=== PATIENT | female | born 1965 | race Caucasian/White ===

== ENCOUNTER → 2017-06-02 16:47 | Outpatient (CLI) | payer MEDICAID ==
[2012-03-26 15:46] VITALS: BMI 38.4
== END | disposition home or self-care (01) ==
LOC: D.MAMMO 05-01 11:30
DX: Z12.31 Encounter for screening mammogram for malignant neoplasm of breast (principal)

== ENCOUNTER → 2017-12-19 09:46 | Outpatient (CLI) | payer MEDICAID ==
[2012-03-26 15:46] VITALS: BMI 38.4
== END | disposition home or self-care (01) ==
LOC: D.MRI 09:46
DX: G89.29 Other chronic pain (principal)

== ENCOUNTER 2018-03-15 04:57 | Emergency (ER) | payer MEDICAID ==
[~2018-03-15] VITALS: Ht 149.9 cm; Wt 95.5 kg
[2018-03-15 05:04] VITALS: Ht 149.9 cm; Wt 95.5 kg
[2018-03-15] MEDS ORDERED: SYNTHROID125 MCG PO (05:18)
[2018-03-15] MEDS ORDERED: MULTI-DAY VITAM1 TAB PO (05:18)
[2018-03-15] MEDS ORDERED: LITHIUM CARBON300 MG PO (05:18)
[2018-03-15] MEDS ORDERED: SINGULAIR10 MG PO (05:19)
[2018-03-15] MEDS ORDERED: TRAZODONE HCL100 MG PO (05:19)
[2018-03-15] MEDS ORDERED: NEXIUM40 MG (05:19)
[2018-03-15] MEDS ORDERED: COZAAR100 MG PO (05:19)
[2018-03-15] MEDS ORDERED: SINEQUAN25 MG PO (05:20)
[2018-03-15] MEDS ORDERED: CELEXA20 MG PO (05:20)
[2018-03-15] MEDS ORDERED: LAMICTAL100 MG PO (05:20)
[2018-03-15 05:25] LABS: BASOPHILS 0.1 % (0-2); EOSINOPHILS 0.2 % (0-7); HEMATOCRIT 39.4 % (36.0-48.0); HEMOGLOBIN 13.2 g/dL (12-16); IMMATURE GRANULOCYTES 0.2 % (0-5); LYMPHOCYTES 10.9 % (15-50); MCH 30.4 pg (26.0-34.0); MCHC 33.5 g/dL (31.0-37.0); MCV 90.8 fL (80.0-100.0); MEAN PLATELET VOLUME 9.4 fL (7.4-10.4); MONOCYTES 7.2 % (2-11); NEUTROPHILS 81.4 % (40-80); RBC 4.34 10x6/uL (4.00-5.40); RDW 13.7 % (11.5-14.5); WBC 12.1 10x3/uL (4.8-10.8)
[2018-03-15 05:33] LABS: PLATELET COUNT 329 10x3/uL (130-400)
[2018-03-15 05:37] LABS: UDS - AMPHET POSITIVE QUAL (NEGATIVE); UDS - BARB NEGATIVE QUAL (NEGATIVE); UDS - BENZO POSITIVE QUAL (NEGATIVE); UDS - COCAINE NEGATIVE QUAL (NEGATIVE); UDS - OPIATE NEGATIVE QUAL (NEGATIVE); UDS - PCP NEGATIVE QUAL (NEGATIVE); UDS - THC POSITIVE QUAL (NEGATIVE)
[2018-03-15 05:38] LABS: SALICYLATES 1.4 mg/dL (2.8-20.0)
[2018-03-15 05:41] LABS: ALBUMIN 3.7 g/dL (3.4-5.0); ALKALINE PHOSPHATASE 84 U/L (46-116); ALT (SGPT) 22 U/L (10-68); BILIRUBIN - TOTAL 0.55 mg/dL (0.2-1.3); CALC OSMOLALITY 277 mosm/kg (275-300); CALCIUM 8.9 mg/dL (8.5-10.1); CARBON DIOXIDE 24.5 mmol/L (21.0-32.0); CHLORIDE - SERUM 105 mmol/L (98-107); CREATININE - SERUM 0.7 mg/dL (0.6-1.3); MAGNESIUM - SERUM 1.9 mg/dL (1.8-2.4); POTASSIUM - SERUM 3.3 mmol/L (3.5-5.1); PROTEIN - SERUM 7.2 g/dL (6.4-8.2); SODIUM 140 mmol/L (136-145); UREA NITROGEN 7 mg/dL (7-18); eGFR NON AFRICAN AMERICAN > 90 mL/min (90-120)
[2018-03-15 05:42] LABS: GLUCOSE 124 mg/dL (74-106); LITHIUM 0.03 mmol/L (0.60-1.20)
[2018-03-15 05:44] LABS: APPEARANCE CLEAR (CLEAR); BILIRUBIN NEGATIVE (NEGATIVE); COLOR YELLOW (YELLOW); GLUCOSE NEGATIVE (NEGATIVE); KETONE LARGE mg/dL (NEGATIVE); NITRITE NEGATIVE (NEGATIVE); PROTEIN TRACE mg/dL (NEGATIVE); SPECIFIC GRAVITY 1.025 (1.005-1.020); UROBILINOGEN NORMAL (NORMAL)
[2018-03-15 05:46] LABS: BACTERIA FEW /hpf (NONE SEEN); EPITHELIAL CELLS 0-5 /hpf (0-5); MUCUS <1+ /lpf (NONE SEEN); RED CELLS - URINE 0-5 /hpf (0-5); WHITE CELLS - URINE 0-5 /hpf (0-5)
[2018-03-15 08:15] VITALS: BP 178/086
== END 2018-03-15 08:16 | disposition home or self-care (01) ==
LOC: D.ER 04:57
PROVIDERS: Family Medicine
DX: F15.10 Other stimulant abuse, uncomplicated (principal); F41.9 Anxiety disorder, unspecified; I10 Essential (primary) hypertension; G47.00 Insomnia, unspecified; Z91.19 Patient's noncompliance with other medical treatment and regimen; F17.200 Nicotine dependence, unspecified, uncomplicated

== ENCOUNTER 2018-08-23 07:20 | Day surgery (SDC) | payer MEDICAID ==
[2018-08-21 16:43] LABS: HEMATOCRIT 47.9 % (36.0-48.0); HEMOGLOBIN 16.5 g/dL (12-16); MCH 31.4 pg (26.0-34.0); MCHC 34.4 g/dL (31.0-37.0); MCV 91.1 fL (80.0-100.0); MEAN PLATELET VOLUME 9.6 fL (7.4-10.4); RBC 5.26 10x6/uL (4.00-5.40); RDW 14.2 % (11.5-14.5); WBC 13.9 10x3/uL (4.8-10.8)
[2018-08-23] VITALS (12 sets, daily range): BP systolic 109–127; BP diastolic 65–84; Ht 149.9 cm; Wt 92.7 kg
[~2018-08-23] VITALS: Ht 149.9 cm; Wt 92.7 kg
--- NOTE | ~2018-08-23 | OP ---
PATIENT NAME: HARMAN LIMON MEDICAL RECORD: [id number] :69 LOCATION:[facility] ADMISSION DATE: SURGEON: HO RIVERA MD DATE OF OPERATION: 08/23/2018 PREOPERATIVE DIAGNOSES: Osteophyte formation, disc herniation at the C4-C5 and C5-C6. SURGEON: Ho Rivera MD PROCEDURE: Anterior cervical discectomy and fusion with separate anterior cervical plate and screws, PEEK interbody cages, bone stem cell allograft at C4-C5 and C5-C6. DESCRIPTION OF TECHNIQUE: After induction of general endotracheal anesthesia, the patient was positioned supine on the operating table with interscapular roll. The neck was prepped and draped in usual sterile fashion. A [place] dissector localized the C4-C5 interspace. A transverse skin incision was carried out from the midline to the sternocleidomastoid muscle. The platysma was divided with Bovie cautery. Then, using blunt and sharp dissection with Metzenbaum scissors, I proceeded in an avascular plane medial to the carotid sheath. The C4-C5 and C5-C6 interspaces were confirmed with fluoroscopic x-ray and a spinal needle. The longus colli muscles were elevated from bodies of C4, C5 and C6. [place] distracting pins were placed in the bodies of C4, C5 and C6. The disc space was incised in each level with a #11 blade. The disc material was removed with pituitary rongeurs and curettes. Under microscopic illumination, osteophytes were drilled away posteriorly with a Midas-Ubaldo drill. The posterior longitudinal ligament was removed with Cloward rongeurs. Following this, the dura was decompressed well. Peek interbody cages were placed in the disc space at C4-C5 and C5-C6. Prior to this, I filled with bone stem cell allograft. A separate anterior cervical plate and screws was used to span the C4-C5 and C5-C6 interspaces. Self-drilling screws were placed through the holes of the plate. Locking cams were tightened down over the screw heads. Good position of the hardware was confirmed with fluoroscopic x-ray. The platysma was closed with interrupted 3-0 Vicryl suture, the subdermal layer was closed with interrupted 3-0 Vicryl suture. The skin was reapproximated with Steri-Strips and benzoin. A sterile dressing was applied to the wound. The patient was awakened in good condition and taken to recovery. All counts were reported as correct. Estimated blood loss was minimal. TRANSINT:[id number] Voice Confirmation ID: [id number] DOCUMENT ID: [id number] HO RIVERA MD CC: [id number] DICTATION DATE: 08/29/18 0749 RUG WASHER: 08/29/18 0857 [facility] 08/24/18 [place] [id number]
[~2018-08-23 07:20] MED LIST: BUSPIRONE HCL7.5 MG PO; CELEXA20 MG PO; COZAAR100 MG PO; KLONOPIN1 MG PO; LAMICTAL100 MG PO; LITHIUM CARBON300 MG PO; MULTI-DAY VITAM1 TAB PO; NEURONTIN 300300 MG PO; NEXIUM40 MG; SINEQUAN25 MG PO; SINGULAIR10 MG PO; SYNTHROID125 MCG PO; TOPROL XL50 MG PO; TRAZODONE HCL100 MG PO
[2018-08-23 08:00] LABS: HCG URINE NEGATIVE (NEGATIVE)
--- NOTE | 2018-08-23 14:45 | NUR ---
RECEIVED PATIENT FROM RECOVERY NURSE AT THIS TIME. LEFT ANTERIOR NECK INCISION FROM ACD C4-C5-C5-C6. HOB ELEVATED 60 DEGREES. PT AWAKE BUT DROWSY FROM ANESTHESIA MEDS. HOOKED UP TO MONITOR. VSS. WILL CHECK ORDERS AND CONTINUE TO MONITOR
--- NOTE | 2018-08-23 15:51 | NUR ---
CALLED DR. FELIZ FOR MEDICATION ORDERS. NO ANSWER. WILL TRY BACK LATER
--- NOTE | 2018-08-23 16:48 | NUR ---
CALLED DR. FELIZ'S CELL AGAIN TO ASK ABOUT MED ORDERS. NO ANSWER. LEFT VOICEMAIL. CALLED SURGERY AND FOUND OUT HE IS IN SURGERY AT THE MOMENT.
--- NOTE | 2018-08-23 19:00 | NUR ---
REPORT REC'D.PT CARE ASSUMED. ASSESSMENT COMPLETED. SEE FLOW SHEETS FOR ALL FINDINGS. PT NECK INCISION SMALL BLEEDING NOTED, DRESSING REINFORCED WITH 4X4 AND MEPILEX TAPE. WILL CONT TO MONITOR.
--- NOTE | 2018-08-23 22:02 | NUR ---
PT C/O HEADACHE 4/10 ON SCALE. NORCO-5 X2TAB GIVEN. REPOSITIONED SELF FOR COMFORT. WILL CONT TO MONITOR.
--- NOTE | 2018-08-23 23:00 | NUR ---
REASSESSMENT COMPLETED PER FLOWSHEETS. NO SIGNS OF DISTRESS NOTED AT THIS TIME. VSS. CPOC.
[2018-08-24] VITALS (13 sets, daily range): BP systolic 116–166; BP diastolic 74–129
--- NOTE | 2018-08-24 01:00 | NUR ---
PT RESTING QUIETLY WIHTOUT DISTRESS AT THIS TIME. VSS.
--- NOTE | 2018-08-24 03:00 | NUR ---
REASSESSMENT COMPLETED PER FLOWSHEETS. SB IN CM WITH HR TO 55, PT C/O HEADACHE 4/10 ON SCALE. TYLENOL 1TAB GIEN PER ORDER, WILL REASSESS. CPOC.
--- NOTE | 2018-08-24 07:00 | NUR ---
PATIENT RESTING IN BED WITH STABLE VS. AWAKE ALERT AND ORIENTED. DRESSING TO NECK IS CLEAN AND DRY.
--- NOTE | 2018-08-24 09:00 | NUR ---
PATIENT RESTING IN BED WITH STABLE VS AWAKE AND ALERT. ATE BREAKFAST ADMINISTERED PRN MORPHINE FOR COMFORT. NO COMPLAINTS.
--- NOTE | 2018-08-24 11:00 | NUR ---
PATIENT RESTING IN BED WITH STABLE VS. AWAKE ALERT AND ORIENTED. NO COMPLAINTS. O2 SATURATION 93% WITHOUT OXYGEN. WILL INFORM DR. FELIZ WHEN HE MAKES ROUNDS.
== END 2018-08-24 13:00 | disposition home or self-care (01) ==
LOC: D.OPS 07:20 → D.PAN 09:35 → D.OPS 09:35 → D.ICU 14:15 → D.OPS 08-24 13:00
PROVIDERS: Anesthesiology; ATTEND Neurological Surgery
DX: M50.221 Other cervical disc displacement at C4-C5 level (principal); M50.222 Other cervical disc displacement at C5-C6 level; M25.78 Osteophyte, vertebrae; Z01.812 Encounter for preprocedural laboratory examination

== ENCOUNTER 2019-07-14 15:33 | Emergency (ER) | payer MEDICAID ==
[2018-08-23 14:58] VITALS: Ht 149.9 cm; Wt 68.2 kg
[~2019-07-14] VITALS: Ht 149.9 cm; Wt 68.2 kg
[2019-07-14 16:40] LABS: HEMATOCRIT 41.5 % (36.0-48.0); HEMOGLOBIN 13.6 g/dL (12-16); MCH 30.9 pg (26.0-34.0); MCHC 32.8 g/dL (31.0-37.0); MCV 94.3 fL (80.0-100.0); MEAN PLATELET VOLUME 9.7 fL (7.4-10.4); PLATELET COUNT 246 10x3/uL (130-400); RDW 13.9 % (11.5-14.5); WBC 3.8 10x3/uL (4.8-10.8)
[2019-07-14 16:49] LABS: CALC OSMOLALITY 290 mosm/kg (275-300); CALCIUM 8.5 mg/dL (8.5-10.1); CHLORIDE - SERUM 107 mmol/L (98-107); CREATININE - SERUM 0.8 mg/dL (0.6-1.3); GLUCOSE 130 mg/dL (74-106); POTASSIUM - SERUM 3.4 mmol/L (3.5-5.1); SODIUM 145 mmol/L (136-145); UREA NITROGEN 12 mg/dL (7-18); eGFR NON AFRICAN AMERICAN 80 mL/min (90-120)
[2019-07-14 16:56] LABS: ALBUMIN 3.3 g/dL (3.4-5.0); ALKALINE PHOSPHATASE 84 U/L (30-120); ALT (SGPT) 29 U/L (10-68); BILIRUBIN - TOTAL 0.11 mg/dL (0.2-1.3); PROTEIN - SERUM 6.3 g/dL (6.4-8.2)
[2019-07-14 16:58] LABS: EOSINOPHILS 2 % (0-7); LYMPHOCYTES 65 % (15-50); MONOCYTES 2 % (2-11); NEUTROPHILS 31 % (40-80); PLATELET ESTIMATE NORMAL; TEAR DROP CELLS OCC
[2019-07-14] MEDS ORDERED: TESSALON PERLE100 MG PO (17:09)
[2019-07-14 17:30] VITALS: BP 103/74
== END 2019-07-14 17:30 | disposition home or self-care (01) ==
LOC: D.ER 15:33
PROVIDERS: Family Medicine
DX: J11.1 Influenza due to unidentified influenza virus with other respiratory manifestations (principal); F41.9 Anxiety disorder, unspecified; J45.909 Unspecified asthma, uncomplicated; I10 Essential (primary) hypertension; M54.9 Dorsalgia, unspecified; K21.9 Gastro-esophageal reflux disease without esophagitis; Z72.0 Tobacco use

== ENCOUNTER 2019-10-25 07:30 | Day surgery (SDC) | payer MEDICARE ==
[2019-10-23 14:17] LABS: HEMOGLOBIN 12.5 g/dL (12-16); MCH 30.6 pg (26.0-34.0); MCHC 31.3 g/dL (31.0-37.0); MCV 97.8 fL (80.0-100.0); MEAN PLATELET VOLUME 9.1 fL (7.4-10.4); RBC 4.09 10x6/uL (4.00-5.40); RDW 13.6 % (11.5-14.5); WBC 6.4 10x3/uL (4.8-10.8)
[~2019-10-25] VITALS: Ht 149.9 cm; Wt 75.8 kg
[~2019-10-25 07:30] MED LIST changes: +ALBUTEROL SULF8.5 GM INH; +CLARITIN 10 MG10 MG PO; +HYDROCODON-ACE1 EA10 PO; +POTASSIUM99 M1 PO; +TESSALON PERLE100 MG PO
[2019-10-25 08:01] VITALS: BP 124/80; Ht 149.9 cm; Wt 75.8 kg
[2019-10-25 08:23] LABS: HCG URINE NEGATIVE (NEGATIVE)
[2019-10-25] MEDS ORDERED: PERCOCET 10-321 EAC1 PO (10:49)
[2019-10-25] MEDS ORDERED: VISTARIL50 MG PO (10:51)
--- NOTE | 2019-10-25 11:27 | NUR ---
1119 UNABLE TO PALPATE PULSES IN LEFT FOOT DUE TO DRESSING. COLOR OF TOES IS PINK AND WARM. ANGOLAN ON NAILBEDS.
--- NOTE | 2019-10-25 14:17 | NUR ---
1223 ALL DC CRITERIA MET. FOLLOW UP APPT GIVEN. VOICES NO OTHER NEEDS. TAKEN DOWNSTAIRS TO VEHICLE WITH SISTER. DC'D HOME. ADVISED TO CALL OR COME BACK IF ANY PROBLEMS.
--- NOTE | 2019-10-26 08:22 | OP ---
PATIENT NAME: HARMAN LIMON MEDICAL RECORD: [id number] :69 LOCATION:[facility] ADMISSION DATE: SURGEON: SE ELLISON DO DATE OF OPERATION: 10/25/2019 PROCEDURE PERFORMED: Removal of soft tissue mass on the left great toe. PREOPERATIVE DIAGNOSIS: Left great toe soft tissue mass. POSTOPERATIVE DIAGNOSIS: Left great toe soft tissue mass. INDICATIONS: Ms. Limon is a 54-year-old female who has had the soft tissue mass in her left great toe on the lateral side of it for quite some time been getting larger and more painful, it was mobile, got an MRI, which showed a soft tissue mass, unknown what it was, could possibly be malignancy and due to that fact I told her we should remove it and send to the lab and find out what it is. She was okay with that plan and aware of the risks including infection, bleeding, damage to the nerve on that side, continued pain and need for further surgery. She is okay with all that and signed the consent. SURGEON: Se Ellison DO DESCRIPTION OF PROCEDURE: The patient was taken to the operative suite, laid in supine position, given 2 grams Ancef preoperatively. The left lower extremity was prepped and draped in sterile fashion after she was sedated and LMA was placed. The left lower extremity was then obtained with a tourniquet, a timeout had been performed and the tourniquet was inflated to 350 mmHg, it was up for 6 minutes. We then made an incision over the mass with #15 blade scalpel. Careful dissection was made down to it and what appeared to be tied up in the nerve on the lateral side of the great toe on the dorsal surface. The mass appeared to be some kind of hematologists in nature. This was red and purple in color. This was well encapsulated and not attached to anything, just soft tissue, it was removed and then she was anesthetized in the area with 0.25% Marcaine with epinephrine, 9 mL of it. The tourniquet was then let down. Any bleeding was coagulated with a pickup and a Bovie. It was then closed by Fabian Chandler, certified surgical brace maker with 4-0 Monocryl in a horizontal mattress fashion. She was then placed in a soft dressing and placed in a postop shoe, awakened and taken to recovery in stable condition. ESTIMATED BLOOD LOSS: Minimal. COMPLICATION: None. TRANSINT:[id number] Voice Confirmation ID: [id number] DOCUMENT ID: [id number] SE ELLISON DO at 0822 CC: [id number] DICTATION DATE: 10/25/19 1100 ELECTRIC [employer]OR CONTROL ASSEMBLER: 10/25/19 1545 [facility] 10/25/19 [place] [id number] [place] [id number]
== END 2019-10-25 12:25 | disposition home or self-care (01) ==
LOC: D.OPS 07:30 → D.PAN 10:45 → D.OPS 12:25
PROVIDERS: Anesthesiology; ATTEND Orthopaedic Surgery
DX: R22.42 Localized swelling, mass and lump, left lower limb (principal); K21.9 Gastro-esophageal reflux disease without esophagitis; I10 Essential (primary) hypertension; J45.909 Unspecified asthma, uncomplicated; E03.9 Hypothyroidism, unspecified; F17.200 Nicotine dependence, unspecified, uncomplicated